=== PATIENT | female | born 1975 | race Caucasian/White ===

== ENCOUNTER → 2017-08-16 11:30 | Outpatient (CLI) | payer BC, SELFPAY ==
[2017-08-20 08:48] LABS: HPV Reflexed? NOT INDICATED
== END ==
PROVIDERS: Visit Provider Obstetrics & Gynecology
DX: Z12.4 Encounter for screening for malignant neoplasm of cervix (principal)
CPT/HCPCS: 88175; G0145

== ENCOUNTER → 2019-11-27 14:45 | Outpatient (CLI) | payer BC, SELFPAY ==
[2019-12-02 04:45] LABS: HPV Reflexed? NOT INDICATED
== END ==
PROVIDERS: Visit Provider Obstetrics & Gynecology
DX: Z12.4 Encounter for screening for malignant neoplasm of cervix (principal)
CPT/HCPCS: 88175; G0145

== ENCOUNTER 2021-03-09 05:28 | Day surgery (SDC) | payer BC, SELFPAY ==
[2021-03-04 11:44] LABS: Hematocrit 34.3 % (37-47); Hemoglobin 11.2 g/dL (12.0-15.0); Mean Corp Hgb Conc 32.7 g/dL (32-36); Mean Corpuscular Hgb 26.7 pg (27.0-32.0); Mean Corpuscular Volume 81.9 fL (81-99); Mean Platelet Vol. 10.6 fl (6.2-12.0); Platelet Count 276 K/mm3 (150-450); RBC Distribution Width CV 15.2 % (11.6-14.6); RBC Distribution Width SD 45.5 fl (35.1-43.9); Red Blood Count 4.19 M/mm3 (4.2-5.4); White Blood Count 5.5 K/mm3 (4.4-11.0)
[2021-03-04 11:52] LABS: International Normalized Ratio 0.9; Prothrombin Time (Protime)PT. 11.8 SECONDS (11.7-14.9)
[2021-03-04 11:53] LABS: Partial Thromboplast Time 25.1 Seconds (24.1-36.2)
[2021-03-04 12:26] LABS: Anion Gap 8 (5-15); BUN 12 mg/dL (7-18); BUN/Creat Ratio 14.5 RATIO (10-20); Chloride 100 mmol/L (98-107); Creatinine, Serum 0.82 mg/dL (0.55-1.02); EST Glomerular Filtration Rate 80 mL/min (>60); Est Glom Filt Rate - Afr Amer 96 mL/min (>60); Glucose 79 mg/dL (74-106); Potassium 4.2 mmol/L (3.5-5.1); Sodium Level 135 mmol/L (136-145)
[2021-03-04 13:01] LABS: hCG Titer Quant., Serum < 1 mIU/mL (1-3)
--- NOTE | 2021-03-05 11:53 | EKG12_ITS ---
Test Reason : PREOP Blood Pressure : / mmHG Vent. Rate : 057 BPM Atrial Rate : 057 BPM P-R Int : 136 ms QRS Dur : 076 ms QT Int : 452 ms P-R-T Axes : 032 031 041 degrees QTc Int : 439 ms Sinus bradycardia Otherwise normal ECG Confirmed by DAYRON PARISI, SARAH ([id number]), story editor HEATHER GAGNON ([id number]) on 03/06/2021 9:14:14 AM Referred By: Jass Boyle Confirmed By:SARAH PADGETT MD
--- NOTE | 2021-03-08 12:54 | HP.PCM_ITS ---
History and Physical Date of Admission: 03/09/21 Surgical History and Physical Nory Palafox, a 45 year old female 3 0 0 0 3, presents for RAVH/BSO on March 09, 2021 at 7:30. -- Severe Cyclic Pelvic Pain, Endometriosis -- Had an upper endoscopy and colonoscopy donethat were normal. She has issues with painful intercourse. Pperiods are like clock work but very heavy and with lots of clots. Pt sts she has been having increased lower abd pain for which she has been seeing her PCP. Constant lower abd cramping and bloating with intermittent sharp almost intolerable pain. It lessens slightly for approx 5 days after her menses. She has to figure something out because it is really beginning to affect her moods and even mental well being. Lower abd pain which began years ago. Nory claims it started gradually and has been present constantly for years. It occurs all the time. It is located in the lower abdo men. Nory characterizes it to be non-radiating. Nory characterizes the quality constant ache, intermittent sharp, bloating. Severity is moderate but now worsening. It is aggravated by NONE. It is relieved by Menses. Associated signs and symptoms are lower abd pain and bloating. Additional comments are: Pain has worsened over the last 2 years. Initially only during her menses. Now almost always except for the week after her menses. Ibuprofen helps some but she is on maximum dose. Spends about 2 days/month on the couch. MEDICATIONS HISTORY: Current medications prescribed by our practice are: 1. fluoxetine 20 mg capsule, One pill by mouth once a day 2. metformin ER 500 mg 24 hr tablet,extended release, One pill by mouth twice a day ALLERGIES: NKA Infections - Chicken pox Illnesses - PCOS, Bulging Disk Accidents - None Hospitalizations - Childbirth and see surgery by [facility]; Review of Systems: GENERAL - Denies fever, or chills SKIN - Denies skin changes EYES - Denies visual changes EARS - Denies difficulty hearing NOSE - Denies nasal congestion or bleeding MOUTH - Denies sore throat or difficulty swallowing NECK - Denies pain or swelling RESPIRATORY - Denies shortness of breath or wheezing CARDIOVASCULAR - Denies palpitations or chest pain GASTROINTESTINAL - Denies nausea, vomiting, diarrhea, constipation GENITOURINARY - Denies dysuria, frequency of urination, incontinence of urine MUSCULOSKELETAL - Denies joint or muscle pain NEUROLOGICAL - Denies localized numbness or weakness PSYCHIATRIC - Denies depression or anxiety ENDOCRINE - Denies heat or cold intolerance, weight loss or gain HEMATO-IMMUNOLOGIC - Denies excesive bleeding with cuts SOCIAL HISTORY: Alcohol Use - denies use Smoking - denies use Diet - balanced Diet Lifestyle - moderate stress lifestyle, active lifestyle and Exercise - very active Seat Belt Use - always Employer - [employer] Job Description - clean homes for others Illicit Drug Use - denies use of street drugs Sexual Activity - Hours Worked - 30 wk Spouse-Sig Other Name - Erick Spouse-Sig Other Occupation - [employer] Children Name(s) - RAND JADE BERTRAND Control - Vasectomy FAMILY HISTORY: Family history of Heart Disease. MENSTRUAL HISTORY: LMP Known?- YesAmount/Duration - 7 days, Regularity - Regular, Frequency - monthly days, LMP - 02/20/21, Age Onset Menarche - 13 PAST PREGNANCIES: Total Pregnancies - 3; Full Term Pregnancies - 3; Premature - 0; Abortions, Induced - 0; Abortions, Spontaneous - 0; Ectopics - 0; Multiple Births - 0; Living Children - 3 SURGICAL HISTORY: 1. 11/09/2008 cholecystectomy ; Dr. Maciel - 2. tear ducts opened september 1977 ; - 3. tonsillectomy october 1993 ; - 4. 05/23/2011 Back Surgery ; Dr. Mccarty - PHYSICAL EXAM BP- 140/86 Sitting, Right arm, regular cuff Weight- 202.25950 lbs Height- 66.25 inch BMI:[id number] CONSTITUTIONAL - NAD, well nourished, and well developed SKIN - No rash, lesions, or ulcers HEENT - Normocephalic, PERRLA, EOMI NECK - No nodes, no nuchal rigidity and thyroid normal size and texture LYMPH NODES - Palpation of lymph nodes in neck and groins within normal limits LUNGS - CTA x2 without wheezes, crackles or rales CARDIAC - Regular rate and rhythm without rubs, murmurs, or gallops BREAST - No dominant masses, no tenderness, no axillary adenopathy, no nipple discharge, no skin changes ABDOMEN - Without hepatosplenomegaly, distention, masses, rebound, or guarding; normal bowel sounds; no hernias EXTREMITIES - No edema or calf tenderness NEUROLOGICAL - Cranial nerves II-XII grossly intact PSYCHIATRIC - A and O to time, place, person, mood and affect External Genitial Vagina - non-tender without lesions Urethra/Urethral Meatus - non-tender Bladder - non-tender Vagina - vaginal mc are pink and moist without loss of rugae and no evidence of atropy Cervix - without cervical motion tenderness and has normal size and features without evident lesions Uterus - multiparous size 6 cm & wt 75-125 g and increased tenderness Adnexa - clear without massess or tenderness and increased tenderness both adnexa ASSESSMENT/PLAN: Endometriosis Unspec and Pelvic And Perineal Pain Severe and worsening over time. Time course and severity of pain is consistent with endometriosis. Discussed treatment options and patient desires to procee ed with hysterectomy. Plan RAVH/BSO as cervix is high in vagina. Discussed RBAs and all questions answered including need for shelter HRT.
[2021-03-09] VITALS (18 sets, daily range): BP systolic 104–127; BP diastolic 68–90; PULSE 65–91; RESP 12–18; TEMP 36.3–37.1; O2SAT 92–100; BMI 30.9
--- NOTE | 2021-03-09 | HYST_PTH ---
PATIENT: FATUMA LINARES LOC: [facility] [place][id number] AGE/SX: 45/F ROOM: RE03/09/[address]: Dr. Jass Boyle MD : 1975 BED: DIS: 03/09/2021 SPEC #: [id number] RECD: 03/09/21 13:16 STATUS: JULIAN RELydia #: [id number] SWATHI: 03/09/21 00:[address]: Jass Boyle DEPT: SURGICAL PATHOLOGY RECD BY: Kedar Moreno ENTERED: 03/09/21 13:16 SP TYPE: HYSTERECT OTHR DR: Dr. Jose Dove MD Tissues: Uterus, NOS Procedures: Surgery Specimen Level V HEADER OPERATION: ERAS, lap robotic hysterectomy, BSO PRE-OP DIAGNOSIS: Endometriosis and pelvic and perineal pain TISSUE SUBMITTED: Uterus, bilateral fallopian tubes and ovaries MICROSCOPIC DIAGNOSIS Uterus, bilateral fallopian tubes and ovary, hysterectomy and bilateral salpingectomy: Cervix ? moderate chronic inflammation. Endometrium ? proliferative endometrium. Myometrium ? intramural and subserosal leiomyomas (largest measuring 2.5 cm in greatest dimension). - Adenomyosis. Bilateral fallopian tubes - no pathologic diagnosis. Right ovary ? physiologic follicular cysts. - Benign simple epithelial cyst. Left ovary ? physiologic follicular and corpus luteal cysts. SJ:rg 03/10/2021 MICROSCOPIC DESCRIPTION Slides are reviewed. GROSS DESCRIPTION Received in fixative is one container labeled with the patient's name and designated uterus, bilateral fallopian tubes and ovaries. The specimen consists of a hysterectomy specimen consisting of uterus with cervix and attached bilateral fallopian tubes and ovaries. The uterus with cervix weighs 137 gm and measures 10 x 7 x 5 cm. The serosal surface is de leon, glistening. A subserosal nodule is noted at the junction of cervix and body of the uterus. The ectocervical mucosa shows a focal area of erosion. The external os is oval in contour. The endocervical canal measures 4 cm in length and the endocervical mucosa is de leon, glistening and unremarkable. The triangular endometrial cavity measures 5 cm in length and up to 2.5 cm in width. The endometrium is de leon, glistening without any mass lesion and measures 0.3 cm in thickness. Sections of the uterine wall reveal a subserosal nodular mass measuring 2.5 cm in greatest dimension and a few smaller intramural nodular masses. Sections of these masses reveal de leon whorled cut surfaces without areas of hemorrhage, necrosis or cystic degeneration. The uninvolved uterine wall measures up to 2.5 cm in thickness. The right fallopian tube measures 7.5 cm in length and 0.5 cm in diameter. It is previously, partially sectioned in the middle. No tubo-ovarian adhesions are identified. Sections reveal unremarkable cut surfaces. The soft to cystic right ovary measures 3.5 x 2 x 1.5 cm. Sections reveal multiple cysts filled with clear to hemorrhagic fluid. The largest cyst measures 1 cm in greatest dimension. The left fallopian tube is similar appearance to right and measures 7 cm in length and 0.5 cm in diameter. No tubo-ovarian adhesions are identified. The soft to cystic left ovary measures 3.5 x 2.5 x 2 cm. Sections reveal multiple cysts filled with clear to hemorrhagic fluid. The largest cyst measures 1.5 cm in greatest dimension. Commissary Representative sections are submitted in 12 cassettes as follows: 1 - anterior cervix, 2 - posterior cervix, 3 & 4 - anterior uterine wall, 5 & 6 - posterior uterine wall, 7 - smaller intramural nodular masses, 8 - largest subserosal nodular mass, 9 - right fallopian tube, 10 - right ovary, 11 - left ovary, 12 - left fallopian tube. / VENECIA:ewelina 03/09/21 TC:1 CPT: 74713
[2021-03-09 06:26] LABS: Bedside Glucose 107 mg/dL (70-110)
[2021-03-09 06:30] LABS: Internal QC Validated? YES +Cl - CLEAR BKGD; Pregnancy, Urine Negative Negative
[2021-03-09] MEDS: Lactated Ringers 1,000 ML 40 ML IV ×2 (06:51→11:16)
[2021-03-09] MEDS: Acetaminophen 500 MG Tablet 1000 MG PO ×2 (06:52→15:24)
[2021-03-09] MEDS: Gabapentin 600 MG Tablet PO (06:52)
[2021-03-09] MEDS: Cefazolin 2 GM in 0.9% Normal Saline 100 ML IV (07:15)
[2021-03-09] MEDS: Lactated Ringers 1,000 ML 100 ML IV (07:30)
--- NOTE | 2021-03-09 07:38 | PCM.OPRPT ---
Report of Operation Date of Procedure: 03/09/21 Pre-Operative Diagnosis: Pelvic Pain and Endometriosis Post-Operative Diagnosis: Pelvic Pain and Endometriosis, Fibroids, Adhesions Surgery/Procedure Performed:: Robotic Assisted Vaginal Hysterectomy and Bilateral Salpingo-Oophorectomy, Lysis of Adhesions Description of Surgical Findings:: 10 cm uterus with normal-appearing fallopian tubes and ovaries. Endometriosis powder campo noted near right ovary. 2 cm posterior right cervical fibroid was noted and removed with the specimen. Dense adhesion of omentum to subumbilical area from prior laparoscopic gallbladder surgery. Surgeon: Jass Boyle photocomposing keyboard operator: Luis Alberto Salazar Type of Anesthesia: General (Endotracheal) Anesthesiologist: Calixto Christian Specimen's removed: Uterus and bilateral fallopian tubes and ovaries Drains: Yee to straight drain Estimated Blood Loss (mL): Minimal Fluids Replaced: Crystalloid Description of Procedure: Surgeon: Jass Boyle MD, FACOG Indication: This is a 45 year old patient who has been having problems with pelvic pain and endometriosis. Conservative measures have not been helpful. The patient has been counseled regarding the risks, benefits and alternatives of this procedure including the possibility of bleeding, infection, and injury to surrounding structures such as bowel bladder and all questions were answered. She understands that if BSO is needed that she will need to be on HRT for an indefinite period of time. Procedure: Pt taken to the operating room where, after induction of general anesthesia, the patient was prepped and draped in the usual sterile fashion and placed on a non-slip Huggy-u-vac device. Trendelenburg test was satisfactory. Bladder was drained of urine with a Yee catheter which was left in place. Anterior cervix grasped and cervix was dilated to about 3-4 mm. Uterus sounded to 10 cms. 0-Vicryl suture was placed at the 3:00 and 9:00 position of the cervix. A medium Advincula Manager Intranet Uterine Manipulator was then placed in the uterus and attention was turned to the laparoscopic portion of the procedure. Ropivocaine 0.5% was injected approximately 2-3 cm superior to the umbilicus and an 8 mm robotic camera port was introduced directly with intraperitoneal placement confirmed with CO2 insufflation. 8 mm robotic side ports were introduced under direct visualization approximately 11 cm lateral and 2 cm inferior to the umbilical port. A subumbilical omental adhesion was ligated with Enseal device. A 5 mm left upper quadrant port was introduced and airseal insufflation with CO2 was started. The above findings were noted. Robot was docked without difficulty and attention turned to the robotic portion of the procedure. Approximately 30 cc of Ropivicaine was used. Bilateral infundibulopelvic ligaments were ligated with 35 sahu bipolar coagulation to the level of the round ligament. The posterior aspect of the cervix was identified and then opened for about 1 cm using 25 watt monopolar cautery. Bladder flap was opened and divided to the level of the round ligaments using monopolar cautery. Progressive bites were then ligated on each side of the cervix with 35 sahu bipolar cautery to the uterine arteries. The anterior vaginal mucosa was entered and cervix circumscribed with monopolar cautery. Uterus and attached tubes and ovaries were removed through the vagina. Vaginal cuff was closed first with 0-Vicryl Chela stitches placed at each angle followed by closure of the mid-cuff with 0-Monocryl V-lock suture in two layers. Pelvis was copiously irrigated with saline and the right and left ureter was noted to peristalse. Kianna was placed to help with some postoperative oozing. The omental adhesion was visualized and no active bleeding was noted. Robot was undocked and trocars were removed with as much gas as possible. Incisions were closed with 4-0 Monocryl subcuticular sutures and incisions covered with steri-strips. The patient tolerated the procedure well and was taken to the recovery room in satisfactory condition. Sponge, instruments and needle counts were all correct. There were no apparent complications of the surgery. Ancef 2 gms IV was given prior to the procedure. Estimated Blood Loss: Minimal Specimen to Pathology: Uterus and bilateral fallopian tubes and ovaries Grafts/Implants Used: None Admit VTE Documentation VTE Present on Admission: Yes VTE Mechan Device Prophylaxis: SCD's
--- NOTE | 2021-03-09 07:41 | PCM.DC ---
Discharge Instructions Diet Discharge Diet: No restrictions Activity Discharge Activity: May Shower and May Take a Tub Bath May resume sexual activity in: 6 weeks (nothing in the vagina.) Lifting Restrictions: 25 pounds for 6 weeks. Additional Activity Instructions:: Nothing in the vagina for 6 weeks please; no lifting more than 20-25 lbs for 6 weeks. Use Ibuprophen 800 mg orally every 8 hours as needed for pain. Can also add Tylenol 1000 mg every 8 hours if needed for pain. If Ibuprophen and Tylenol are not effective then use the Oxycodone but keep in mind it can cause serious constipation issues. Drink lots of water. Call if bleeding more than a pad per hour. Use the colace as constipation is a big issue after this type of surgery. Steps and walking are OK. Activity is encouraged but do not over do it !! Dressing / Incision Call your doctor if your incision/area has: Continuous Slow Oozing, Sudden Increased Bleeding, Increased Pain/ Swelling, Increased Redness and Foul Smelling Discharge Call your doctor if you observe: Fever of 101 or Higher, Inability to urinate, Inability to have a bowel movement, Using more than 1 pad per hour and - (Some vaginal bleeding may be noted for up to 4-8 weeks.) Cleanse incision/area with: - (Let the soapy water run over your incision, rinse and pat dry.) Additional Dressing/Incision Instructions:: The white strips (Steri Strips) on your incisions will fall off on their own. If they fall off and it bothers you it is okay to put Band-Aids across the incisions. Follow Up Care Please Follow Up With: Jass Boyle MD When: Call [phone] for an appointment to be seen in 2 weeks. Test Results: Test results from this visit will be discussed in further detail at your follow-up appointment, if applicable. Discharge Plan Admission Primary Reason for Your Visit: Robotic Vaginal Hysterectomy Attending Provider: Jass Boyle Primary Care Provider: Jose Dove Discharge Orders/Prescriptions Prescriptions: New docusate sodium 100 mg tablet 100 mg PO BID PRN (Reason: constipation) Qty: 60 RF: 1 oxycodone 5 mg capsule 5 mg PO Q6H PRN (Reason: pain) 7 Days Qty: 10 RF: 0 Continued fluoxetine [Prozac] 20 mg Capsule 20 mg PO DAILY RF: 0 metformin 500 mg Tablet Extended Release 24 Hr 500 mg PO BID RF: 0 cholecalciferol (vitamin D3) [Vitamin D3] 125 mcg (5,000 unit) Tablet 250 mcg PO DAILY RF: 0 omega 3-bhw-eyg-fish oil [Fish Oil] 1,000 mg (120 mg-180 mg) Capsule 1 cap PO BID RF: 0 Referrals / Follow Up: Jose Dove MD [Primary Care Provider] - Disposition Disposition (needs filled in before D/C Order can be placed): Home, Self Care
== END 2021-03-09 15:40 | disposition home or self-care (01) ==
LOC: SDC 05:33 → AC 05:34
PROVIDERS: Anesthesiology; PCP Family Medicine; Referring Provider Obstetrics & Gynecology; Visit Provider Obstetrics & Gynecology
PROC: 0UT94ZZ Resection of Uterus, Percutaneous Endoscopic Approach (ICD-10-PCS; CPT 58552; principal; 2021-03-09 07:10)
DX: D25.1 Intramural leiomyoma of uterus (principal); D25.2 Subserosal leiomyoma of uterus; N83.12 Corpus luteum cyst of left ovary; N83.01 Follicular cyst of right ovary; F32.A Depression, unspecified; Z79.899 Other long term (current) drug therapy; Z79.84 Long term (current) use of oral hypoglycemic drugs; E28.2 Polycystic ovarian syndrome; R00.1 Bradycardia, unspecified
CPT/HCPCS: 00944; 58552; S2900; 36415; 80048; 81025; 82962; 83735; 84702; 85027; 85610; 85730; 86850; 86900; 86901; 87426; 88307; 93005; C9803; J7120; J2405